=== PATIENT | female | born 1990 | race Caucasian/White ===

== ENCOUNTER 2025-02-15 02:58 | Emergency (ER) | payer MEDICAID ==
[~2025-02-15] VITALS: Ht 160 cm; Wt 81.8 kg
[2025-02-15 03:01] VITALS: TEMP 99
[2025-02-15 03:27] LABS: COVID AG,FIA SOURCE NASAL SWAB
[2025-02-15 03:53] LABS: INFLUENZA TYPE A NEGATIVE FOR TYPE A (NEGATIVE); INFLUENZA TYPE B NEGATIVE FOR TYPE B (NEGATIVE)
[2025-02-15 03:54] LABS: SARS-COV2 (COVID) ANTIGEN,FIA Negative (Negative)
[2025-02-15 04:19] VITALS: BP 132/81; PULSE 90; RESP 16; O2SAT 96
[2025-02-15] MEDS ORDERED: BENZ-227 PO (06:12)
[2025-02-15] MEDS ORDERED: CETI10TA77 PO (06:12)
== END 2025-02-15 06:23 | disposition home or self-care (01) ==
LOC: EMS 03:02
DX: J06.9 Acute upper respiratory infection, unspecified (principal); B97.89 Other viral agents as the cause of diseases classified elsewhere; R07.89 Other chest pain; Z20.822 Contact with and (suspected) exposure to COVID-19
CPT/HCPCS: 87804; 93005; 99284; Z7502